=== PATIENT | male | born 1945 | race Caucasian/White ===

== ENCOUNTER 2022-02-16 16:24 | Emergency (ER) | payer MEDICARE, OTHER, SELFPAY ==
[2022-02-16 16:24] VITALS: BP 194/74; PULSE 61; RESP 15; TEMP 36.6; O2SAT 99; BMI 25.0
--- NOTE | 2022-02-16 16:40 | EX.ED.DYSGE1 ---
HPI History of Present Illness Chief Complaint: Dizziness Informant: patient Onset/Context/Timing Onset: Today Context: Sudden Onset Timing: Continuous Quality: Spinning Location: Head Worsened by: Nothing Relieved by: Nothing Narrative Narrative: Patient presents with dizziness that began earlier this morning. Patient states she woke up early this morning and felt like the room was spinning. 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 Patient describes it as a spinning sensation. Patient states nothing makes it better nothing makes it worse. Patient states that he has been waxing and waning. Patient admits to some decreased hearing but that is consistent with his M?ni?re's disease. Patient states his hearing is no different than it normally is. Patient denies any fevers or chills. Patient admits to nausea and vomiting. Patient denies any chest pain or shortness of breath. [facility] Medical History Cataract Vertigo Home Medications aspirin 81 mg capsule 81 mg PO DAILY 02/16/22 [History Last Taken Unknown] meclizine 25 mg tablet 25 mg PO BID PRN Dizziness 02/16/22 [History Last Taken Unknown] meclizine 25 mg tablet 25 mg PO Q8H PRN PRN Dizziness #20 tabs 02/16/22 [Rx Last Taken Unknown] Allergy/AdvReac Type Severity Reaction Status Date / Time No Known Allergies Allergy Verified 02/16/22 16:29 Surgical History Status post double vessel coronary artery bypass Social History Smoking Status: Never smoker ROS ROS ED Constitutional Constitutional ED: Denies chills or fever(s) Eyes Eyes: Denies blurry vision or change in vision ENT ENT ED: Denies rhinorrhea or sore throat Cardiovascular Cardiovascular: Denies chest pain or palpitations Respiratory/Chest Respiratory/Chest: Denies cough or dyspnea Gastrointestinal Gastrointestinal: Reports nausea and vomiting Genitourinary Genitourinary ED: Denies dysuria or hematuria Musculoskeletal Musculoskeletal: Denies back pain or neck pain Integumentary Denies abscess or rash Neurologic Neurologic: Denies headache(s) or weakness Allergic/Immunologic Allergic/Immunologic ED: Denies mouth swelling or urticaria EXAM Physical Exam Const Vital Signs: 02/16/22 16:24 02/16/22 16:33 02/16/22 16:39 Temperature 97.8 F Temperature Source Oral Pulse Rate 61 Respiratory Rate 15 Respiratory Effort Normal Non-Labored Respiratory Pattern Normal Blood Pressure 194/74 H Blood Pressure Mean 114 Pulse Ox 99 Oxygen Delivery Method Room Air Room Air 02/16/22 17:57 Temperature Temperature Source Pulse Rate 61 Respiratory Rate 18 Respiratory Effort Respiratory Pattern Blood Pressure 170/71 H Blood Pressure Mean 104 Pulse Ox 99 Oxygen Delivery Method Room Air Positive well nourished and well developed General Appearance ED: well developed and NAD HEENT Reports moist mucous membranes Eyes PERRL and EOMs intact bilaterally Neck supple and no JVD Resp normal respiratory effort and clear to auscultation bilaterally Cardio regular rate, regular rhythm and no murmurs GI normal to inspection, nondistended, normoactive bowel sounds and non-tender Palpation: soft Extremity normal to inspection General Extremety ED: Negative for edema or tenderness General Extremity: Negative for edema Neuro oriented x3, CN's II-XII intact bilaterally and no sensory deficits noted Sensorium / Orientation: alert Motor Exam: strength 5/5 throughout Psych mental status grossly normal Skin no rashes or lesions noted MDM MDM MDM Narrative Medical decision making narrative: Patient was given a dose of Zofran and meclizine here. CT scan of the brain was obtained. There is no acute intracranial abnormality. This was interpreted by the radiologist and reviewed by myself. CBC and basic metabolic profile were within normal limits. Patient is feeling better on reevaluation. Patient is given a prescription for meclizine. Patient was instructed to drink plenty of fluids. Patient was instructed to follow-up with his primary care physician in 5 to 7 days. Patient understood and was agreeable with the plan. All questions were answered. Lab Data Attestation: I reviewed the patient's lab results. Labs: Laboratory Results - last 24 hr 02/16/22 02/16/22 16:50 16:50 WBC 4.6 RBC 4.89 Hgb 14.5 Hct 43.2 MCV 88.3 MCH 29.7 MCHC 33.6 RDW Std Deviation 48.7 H RDW Coeff of Hussein 15.1 H Plt Count 218 MPV 11.8 Immature Gran % (Auto) 0.200 Neut % (Auto) 63.9 Lymph % (Auto) 22.0 [place] % (Auto) 10.1 H Eos % (Auto) 2.9 Baso % (Auto) 0.9 Absolute Neuts (auto) 2.9 Absolute Lymphs (auto) 1.00 Nucleated RBC % 0 Sodium 141 Potassium 3.7 Chloride 107 Carbon Dioxide 25.0 Anion Gap 9 BUN 16 Creatinine 0.91 Estim Creat Clear Calc 73.43 Est GFR (MDRD) Af Amer 104 Est GFR (MDRD) Non-Af 86 BUN/Creatinine Ratio 17.7 Glucose 115 H Calcium 10.1 Total Bilirubin 0.60 AST 20 ALT 22 Alkaline Phosphatase 49 Total Protein 7.8 Albumin 4.2 Globulin 3.6 Albumin/Globulin Ratio 1.2 Radiography Diagnostic Testing: Clinical Impression(s) from Imaging Studies Brain CT 02/16/22 17:01 IMPRESSION: There are no acute intracranial findings. 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 CTA of the neck can better evaluate Electronically Signed: Jorge Looney MD at 17:20 EDT Reading Location ID and State: [facility] / [place] , Service support , Discharge Plan Triage Chief Complaint: Dizziness ED Provider: Orlando Patel Dx/Rx/DC Orders Clinical Impression: Vertigo, M?ni?re's disease Instructions: ED Vertigo, Unspecified Prescriptions: New meclizine 25 MG tablet 25 mg PO Q8H PRN PRN (Reason: Dizziness) Qty: 20 0RF No Action meclizine [Antivert] 25 mg Tablet 25 mg PO BID PRN (Reason: Dizziness) aspirin 81 mg Capsule 81 mg PO DAILY Primary Care Provider: Care Physician,No Primary Referrals: Care Physician,No Primary [Primary Care Provider] - Doctor,Your [Non-Staff] - 5-7 Days Disposition Disposition: Home, Self Care
[2022-02-16] MEDS: Ondansetron 4 MG/2 ML Vial IV (16:51)
[2022-02-16] MEDS: Meclizine HCl 25 MG Tablet PO (16:53)
[2022-02-16 16:54] LABS: Absolute Neutrophil Count 2.9 X10^3/uL (2.0-7.7); Basophil# 0.04 X10^3/uL; Basophil% 0.9 % (0-1); Eosinophil# 0.13 X10^3/uL; Eosinophils% 2.9 % (0-5); Hematocrit 43.2 % (40-54); Hemoglobin 14.5 g/dL (13.0-16.5); Mean Corp Hgb Conc 33.6 g/dL (32-36); Mean Corpuscular Hgb 29.7 pg (27.0-32.0); Mean Corpuscular Volume 88.3 fL (80-94); Mean Platelet Vol. 11.8 fl (6.2-12.0); Monocyte# 0.46 X10^3/uL; Monocyte% 10.1 % (0-10); NRBC Flagged by Analyzer 0 % (0-5); Neutrophil # 2.91 X10^3/uL (2.7-7.7); Neutrophil % 63.9 % (47-70); Platelet Count 218 K/mm3 (150-450); RBC Distribution Width CV 15.1 % (11.6-14.6); RBC Distribution Width SD 48.7 fl (35.1-43.9); Red Blood Count 4.89 M/mm3 (4.6-6.2); White Blood Count 4.6 K/mm3 (4.4-11.0)
--- NOTE | 2022-02-16 17:01 | CT_ITS ---
STUDY: CT BRAIN WITHOUT CONTRAST REASON FOR EXAM: Male, 76 years old. Dizziness TECHNIQUE: Transaxial CT imaging of the brain was performed without administration of intravenous contrast material. Individualized dose optimization techniques were used for this CT. COMPARISON: None FINDINGS: Normal calvarium. Normal soft tissues. Normal size ventricles and extra-axial spaces for the patient''s age. There are areas of decreased attenuation within the white matter tracts of the supratentorial brain, consistent with microvascular disease changes. 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 This is noted between the cerebellar hemisphere. Normal basal ganglia and thalami. Normal brainstem. Normal cerebellum. There is no intracranial hemorrhage. There are no findings of an acute ischemic infarction. There are calcifications noted in the distal vertebral arteries. There are calcifications noted in the cavernous carotid arteries. This is consistent for atherosclerotic disease. 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 Degenerative changes of the mandibular condyles. ASPECTS 10 CT/Brain/Head without Contrast IMPRESSION: There are no acute intracranial findings. 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 CTA of the neck can better evaluate Electronically Signed: Jorge Looney MD at 17:20 EDT ,
[2022-02-16 17:12] LABS: ALB/GLOB Ratio 1.2 RATIO (0.9-2.4); AST(SGOT) 20 U/L (15-37); Alanine Aminotransfer ALT/SGPT 22 U/L (16-61); Albumin, Serum 4.2 g/dL (3.2-5.0); Alkaline Phosphatase 49 U/L (45-117); Anion Gap 9 (5-15); BUN 16 mg/dL (7-18); BUN/Creat Ratio 17.7 RATIO (10-20); Calcium,Total 10.1 mg/dL (8.5-10.1); Chloride 107 mmol/L (98-107); Creatinine, Serum 0.91 mg/dL (0.70-1.30); EST Glomerular Filtration Rate 86 mL/min (>60); Est Glom Filt Rate - Afr Amer 104 mL/min (>60); Estimated Creatinine Clearance 73.43 ml/min; Globulin 3.6 g/dL (2.2-4.2); Glucose 115 mg/dL (74-106); Potassium 3.7 mmol/L (3.5-5.1); Protein, Total 7.8 g/dL (6.4-8.2); Sodium Level 141 mmol/L (136-145)
[2022-02-16 17:57] VITALS: BP 170/71; PULSE 61; RESP 18; O2SAT 99
[2022-02-16 18:51] VITALS: BP 154/68; PULSE 71; RESP 18; O2SAT 99
--- NOTE | 2022-02-16 18:51 | ED.RN ---
500 ml NS infused
== END 2022-02-16 18:51 | disposition home or self-care (01) ==
PROVIDERS: Emergency Provider Emergency Medicine; Visit Provider Emergency Medicine
DX: H81.09 Meniere's disease, unspecified ear (principal)
CPT/HCPCS: 99285; 96374; 70450; 80053; 85025; J2405

== ENCOUNTER 2022-02-17 19:35 | Inpatient (IN) | payer MEDICARE, OTHER, SELFPAY ==
--- NOTE | 2022-02-17 00:10 | RAD_ITS ---
STUDY: X-RAY CHEST REASON FOR EXAM: Male, 76 years old. Neuro deficit, acute, stroke suspected TECHNIQUE: Single AP portable view of the chest. COMPARISON: None. FINDINGS: The lungs are clear and expanded. There is no demonstrated pleural abnormality. Sternal cerclage wires are present from a prior sternotomy. Mild cardiomegaly. Normal mediastinum and nigel. Normal visualized pulmonary arteries. Normal visualized aortic arch and descending thoracic aorta. Normal visualized thoracic spine. Normal visualized ribs, clavicles, and shoulders. There is no demonstrated abnormality of the visualized soft tissue structures of the upper abdomen. RAD/Chest 1 View IMPRESSION: Normal x-ray examination of the chest. Electronically Signed: Flaco Templeton DO at 0:54 EDT ,
[2022-02-17 19:36] VITALS: BP 146/61; PULSE 77; RESP 17; TEMP 36.6; O2SAT 97
[2022-02-17 19:38] VITALS: TEMP 36.6; BMI 23.7
--- NOTE | 2022-02-17 20:34 | EX.ED.DYSGE1 ---
[facility] <Dr. J Carlos Morelos MD - Last Filed: 02/18/22 18:18> History of Present Illness Chief Complaint: Dizziness Informant: patient Narrative Narrative: Patient presents with vertigo. He has a history of vertigo. 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 He has since recovered that. He had a trip and fall about 2 days ago. 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 His toes caught the edge of the carpet. He fell forward. He does not specifically recall hitting the head hard but suspects he did. There was no loss of consciousness. But ever since that event, he has had vertigo. He feels that is worse when he looks to the right. He feels that the motion is things spinning in front of him from his left side to his right side. It is very motion sensitive. Again, worse looking to the right. He has no numbness tingling weakness. When the vertigo kicks in he does get very nauseated and will occasionally vomit. In between these episodes he is not nauseated. If he stays still he does not have symptoms. He was seen yesterday. He had extensive evaluation and was started on meclizine. It sounds like he is likely had 3 total doses. The symptoms are a little bit better but not gone. He states he has had the Angelina maneuver done to him before with success. He requests that we try that tonight. [facility] <Dr. J Carlos Morelos MD - Last Filed: 02/18/22 18:18> [facility] Medical History Cataract Vertigo Home Medications aspirin 81 mg capsule 81 mg PO DAILY 02/16/22 [History Last Taken Unknown] meclizine 25 mg tablet 25 mg PO Q8H PRN PRN Dizziness #20 tabs 02/16/22 [Rx Last Taken Unknown] isosorbide mononitrate 30 mg tablet,extended release 24 hr 30 mg PO DAILY 02/18/22 [History Last Taken Unknown] lamotrigine 25 mg tablet 25 mg PO DAILY 02/18/22 [History Last Taken Unknown] Allergy/AdvReac Type Severity Reaction Status Date / Time Cuvfmwp-[id number]-[id number] Reductase Allergy Other Verified 02/18/22 10:00 Inhibitor Family History Other Heart disease Surgical History Status post double vessel coronary artery bypass Social History Smoking Status: Never smoker ROS <Dr. J Carlos Morelos MD - Last Filed: 02/18/22 18:18> ROS ED Constitutional Constitutional ED: Denies chills or fever(s) Eyes Eyes: Reports other Details: See history of present illness. ; Denies change in vision or diplopia ENT ENT ED: Denies ear pain Cardiovascular Cardiovascular: Denies chest pain, palpitations or racing heartbeat Respiratory/Chest Respiratory/Chest: Denies cough or dyspnea Gastrointestinal Gastrointestinal: Reports nausea and vomiting; Denies abdominal pain, constipation, diarrhea or melena Genitourinary Genitourinary ED: Denies hematuria Musculoskeletal Musculoskeletal: Denies arthralgias, back pain, myalgias or neck pain Integumentary Denies rash Neurologic Neurologic: Reports other Details: See history of present illness ; Denies headache(s), paresthesias or weakness Endocrine Endocrinology: Denies polydipsia or polyuria Hematologic/Lymphatic Hematologic/Lymphatic: Denies easy bleeding or easy bruising Allergic/Immunologic Allergic/Immunologic ED: Denies urticaria EXAM <Dr. J Carlos Morelos MD - Last Filed: 02/18/22 18:18> Physical Exam Const Vital Signs: 02/17/22 19:36 02/17/22 19:38 02/17/22 20:04 Temperature 97.9 F 97.9 F Temperature Source Temporal Temporal Pulse Rate 77 Respiratory Rate 17 Respiratory Effort Normal Non-Labored Respiratory Depth Respiratory Pattern Normal Blood Pressure 146/61 H Blood Pressure Mean 89 Blood Pressure Source Blood Pressure Position Blood Pressure Location Pulse Ox 97 Oxygen Delivery Method Room Air 02/17/22 21:35 02/17/22 23:13 02/17/22 23:20 Temperature Temperature Source Pulse Rate 74 57 L Respiratory Rate 14 17 Respiratory Effort Respiratory Depth Respiratory Pattern Blood Pressure 157/68 H Blood Pressure Mean 97 Blood Pressure Source Blood Pressure Position Blood Pressure Location Pulse Ox 96 98 Oxygen Delivery Method Room Air Room Air Room Air 02/18/22 01:04 02/18/22 01:40 02/18/22 02:25 Temperature 97.8 F 97.7 F L Temperature Source Temporal Oral Pulse Rate 55 L 69 Respiratory Rate 17 16 Respiratory Effort Normal Non-Labored Respiratory Depth Normal Respiratory Pattern Normal Blood Pressure 155/62 H 174/71 H Blood Pressure Mean 93 105 Blood Pressure Source Monitor Blood Pressure Position Semi-Fowlers Blood Pressure Location Left Arm Pulse Ox 95 100 Oxygen Delivery Method Room Air Room Air Room Air 02/18/22 01:45 02/18/22 03:00 02/18/22 05:30 Temperature 97.6 F L Temperature Source Oral Pulse Rate 63 45 L 66 Respiratory Rate 16 Respiratory Effort Respiratory Depth Respiratory Pattern Blood Pressure 127/71 H Blood Pressure Mean 89 Blood Pressure Source Monitor Blood Pressure Position Semi-Fowlers Blood Pressure Location Right Arm Pulse Ox 99 Oxygen Delivery Method Room Air 02/18/22 06:58 02/18/22 07:49 02/18/22 09:22 Temperature 98.5 F Temperature Source Oral Pulse Rate 41 L 56 L Respiratory Rate 16 Respiratory Effort Normal Non-Labored Respiratory Depth Normal Respiratory Pattern Normal Blood Pressure 125/56 H Blood Pressure Mean 79 Blood Pressure Source Monitor Blood Pressure Position Semi-Fowlers Blood Pressure Location Right Arm Pulse Ox 97 Oxygen Delivery Method Room Air Room Air 02/18/22 07:20 02/18/22 13:22 02/18/22 13:32 Temperature 98.3 F Temperature Source Temporal Pulse Rate 67 Respiratory Rate 16 Respiratory Effort Respiratory Depth Respiratory Pattern Blood Pressure 151/50 H Blood Pressure Mean 83 Blood Pressure Source Monitor Blood Pressure Position Semi-Fowlers Blood Pressure Location Left Arm Pulse Ox 97 99 Oxygen Delivery Method Room Air Room Air Room Air 02/18/22 11:00 Temperature Temperature Source Pulse Rate 54 L Respiratory Rate Respiratory Effort Respiratory Depth Respiratory Pattern Blood Pressure Blood Pressure Mean Blood Pressure Source Blood Pressure Position Blood Pressure Location Pulse Ox Oxygen Delivery Method Positive well nourished and well developed General Appearance ED: well developed and NAD; Negative for cyanotic or diaphoretic HEENT Reports moist mucous membranes; Denies dry mucous membranes Mouth ED: No dry mucous membranes Mouth: No dry mucous membranes Eyes General Eye ED: Negative for scleral icterus Neck no lymphadenopathy and no JVD Chest Wall inspection of chest normal Resp normal respiratory effort and clear to auscultation bilaterally Cardio regular rate, regular rhythm and no murmurs GI normal to inspection, nondistended, normoactive bowel sounds, non-tender and non-distended Palpation: soft Back/Spine no CVA tenderness Extremity normal to inspection Neuro oriented x3, CN's II-XII intact bilaterally and no sensory deficits noted Neuro Narrative: Patient has an NIH of 0. When I have him turn to the right he gets definite vertigo he gets horizontal nystagmus, he gets some belching and almost vomits. The symptoms were not as prominent looking to the left but they did occur slightly. They did fatigue somewhat. Sensorium / Orientation: alert Psych mental status grossly normal Skin no rashes or lesions noted <Dr. Uvaldo Whiting, DO - Last Filed: 02/18/22 01:00> Physical Exam Const Vital Signs: 02/17/22 19:36 02/17/22 19:38 02/17/22 20:04 Temperature 97.9 F 97.9 F Temperature Source Temporal Temporal Pulse Rate 77 Respiratory Rate 17 Respiratory Effort Normal Non-Labored Respiratory Depth Respiratory Pattern Normal Blood Pressure 146/61 H Blood Pressure Mean 89 Blood Pressure Source Blood Pressure Position Blood Pressure Location Pulse Ox 97 Oxygen Delivery Method Room Air 02/17/22 21:35 02/17/22 23:13 02/17/22 23:20 Temperature Temperature Source Pulse Rate 74 57 L Respiratory Rate 14 17 Respiratory Effort Respiratory Depth Respiratory Pattern Blood Pressure 157/68 H Blood Pressure Mean 97 Blood Pressure Source Blood Pressure Position Blood Pressure Location Pulse Ox 96 98 Oxygen Delivery Method Room Air Room Air Room Air 02/18/22 01:04 02/18/22 01:40 02/18/22 02:25 Temperature 97.8 F 97.7 F L Temperature Source Temporal Oral Pulse Rate 55 L 69 Respiratory Rate 17 16 Respiratory Effort Normal Non-Labored Respiratory Depth Normal Respiratory Pattern Normal Blood Pressure 155/62 H 174/71 H Blood Pressure Mean 93 105 Blood Pressure Source Monitor Blood Pressure Position Semi-Fowlers Blood Pressure Location Left Arm Pulse Ox 95 100 Oxygen Delivery Method Room Air Room Air Room Air 02/18/22 01:45 02/18/22 03:00 02/18/22 05:30 Temperature 97.6 F L Temperature Source Oral Pulse Rate 63 45 L 66 Respiratory Rate 16 Respiratory Effort Respiratory Depth Respiratory Pattern Blood Pressure 127/71 H Blood Pressure Mean 89 Blood Pressure Source Monitor Blood Pressure Position Semi-Fowlers Blood Pressure Location Right Arm Pulse Ox 99 Oxygen Delivery Method Room Air 02/18/22 06:58 02/18/22 07:49 02/18/22 09:22 Temperature 98.5 F Temperature Source Oral Pulse Rate 41 L 56 L Respiratory Rate 16 Respiratory Effort Normal Non-Labored Respiratory Depth Normal Respiratory Pattern Normal Blood Pressure 125/56 H Blood Pressure Mean 79 Blood Pressure Source Monitor Blood Pressure Position Semi-Fowlers Blood Pressure Location Right Arm Pulse Ox 97 Oxygen Delivery Method Room Air Room Air 02/18/22 07:20 02/18/22 13:22 02/18/22 13:32 Temperature 98.3 F Temperature Source Temporal Pulse Rate 67 Respiratory Rate 16 Respiratory Effort Respiratory Depth Respiratory Pattern Blood Pressure 151/50 H Blood Pressure Mean 83 Blood Pressure Source Monitor Blood Pressure Position Semi-Fowlers Blood Pressure Location Left Arm Pulse Ox 97 99 Oxygen Delivery Method Room Air Room Air Room Air 02/18/22 11:00 Temperature Temperature Source Pulse Rate 54 L Respiratory Rate Respiratory Effort Respiratory Depth Respiratory Pattern Blood Pressure Blood Pressure Mean Blood Pressure Source Blood Pressure Position Blood Pressure Location Pulse Ox Oxygen Delivery Method [facility] <Dr. J Carlos Morelos MD - Last Filed: 02/18/22 18:18> [facility] Narrative Medical decision making narrative: We initially did Angelina maneuver starting with head tilted to the right. He did get some vertigo at each stage. He got vertigo when we sat him up. He feels the symptoms improved a little bit but he still has notable vertigo with turning. We let him rest, and then we did the same maneuver going to the left. He initially did not have as many symptoms but when we sat him up he got a fair amount of symptoms. These did stop within about 20 seconds. As we did induce some nausea with this, we will give him some Zofran. We will also try Valium and reattempt the procedure. I also reviewed work-up from yesterday. Blood work was overall normal. CT of the head showed no acute process but did show vertebral artery narrowing. We tried Angelina maneuver to the right and left without any significant benefit. At this point he was nauseated afterwards. We did give him Zofran. We then gave him Valium. We repeated this. He felt a little better sitting in bed. He states if he sits still he does not have any problems. He tried turning right in the left and he did feel better. He states the nausea was gone. However, we tried to get him up and he was very vertiginous and felt like he was going to vomit again. We sat him down and the symptoms got better. However, at this time I cannot get him better with multiple meds. He is already on meclizine at home. He is 76. CT yesterday showed some vertebral narrowing. At this point we will pursue further work-up. His symptoms do not sound like acute stroke but it certainly very difficult to differentiate posterior circulation from benign vertigo at times. Since he is not responding to therapy we will pursue more comprehensive work-up. We will repeat much of the work-up yesterday and add a CTA also. I will try to get SOC neurology consult. Unless the patient improves markedly, he will likely need admission for management. Lab Data Labs: Laboratory Results - last 24 hr 02/17/22 02/17/22 02/17/22 23:00 23:00 23:00 WBC 4.6 RBC 4.59 L Hgb 13.4 Hct 41.0 MCV 89.3 MCH 29.2 MCHC 32.7 RDW Std Deviation 49.4 H RDW Coeff of Hussein 15.0 H Plt Count 209 MPV 11.4 Immature Gran % (Auto) 0.200 Neut % (Auto) 71.6 H Lymph % (Auto) 18.8 L [place] % (Auto) 7.9 Eos % (Auto) 1.3 Baso % (Auto) 0.2 Absolute Neuts (auto) 3.3 Absolute Lymphs (auto) 0.86 Nucleated RBC % 0 PT 14.2 INR 1.1 APTT 28.0 Sodium 140 Potassium 3.8 Chloride 104 Carbon Dioxide 28.0 Anion Gap 8 BUN 19 H Creatinine 1.10 Estim Creat Clear Calc 60.75 Est GFR (MDRD) Af Amer 83 Est GFR (MDRD) Non-Af 69 BUN/Creatinine Ratio 17.3 Glucose 137 H Hemoglobin A1c Calcium 9.3 Troponin I High Sens 95 H Triglycerides Cholesterol LDL Cholesterol VLDL Cholesterol HDL Cholesterol 02/18/22 02/18/22 02/18/22 02:08 04:41 04:41 WBC 4.7 RBC 4.30 L Hgb 12.9 L Hct 38.5 L MCV 89.5 MCH 30.0 MCHC 33.5 RDW Std Deviation 50.4 H RDW Coeff of Hussein 15.3 H Plt Count 190 MPV 11.3 Immature Gran % (Auto) 0.400 Neut % (Auto) 59.3 Lymph % (Auto) 27.7 [place] % (Auto) 10.1 H Eos % (Auto) 1.9 Baso % (Auto) 0.6 Absolute Neuts (auto) 2.8 Absolute Lymphs (auto) 1.31 Nucleated RBC % 0 PT INR APTT Sodium 140 Potassium 3.5 Chloride 106 Carbon Dioxide 27.0 Anion Gap 7 BUN 18 Creatinine 1.02 Estim Creat Clear Calc 65.51 Est GFR (MDRD) Af Amer 91 Est GFR (MDRD) Non-Af 75 BUN/Creatinine Ratio 17.6 Glucose 134 H Hemoglobin A1c Calcium 8.7 Troponin I High Sens 94 H 91 H Triglycerides 189 Cholesterol 212 H LDL Cholesterol 140 H VLDL Cholesterol 38 HDL Cholesterol 34 L 02/18/22 04:41 WBC RBC Hgb Hct MCV MCH MCHC RDW Std Deviation RDW Coeff of Hussein Plt Count MPV Immature Gran % (Auto) Neut % (Auto) Lymph % (Auto) [place] % (Auto) Eos % (Auto) Baso % (Auto) Absolute Neuts (auto) Absolute Lymphs (auto) Nucleated RBC % PT INR APTT Sodium Potassium Chloride Carbon Dioxide Anion Gap BUN Creatinine Estim Creat Clear Calc Est GFR (MDRD) Af Amer Est GFR (MDRD) Non-Af BUN/Creatinine Ratio Glucose Hemoglobin A1c 5.7 H Calcium Troponin I High Sens Triglycerides Cholesterol LDL Cholesterol VLDL Cholesterol HDL Cholesterol Radiography Diagnostic Testing: Clinical Impression(s) from Imaging Studies Chest X-Ray 02/17/22 00:10 IMPRESSION: Normal x-ray examination of the chest. Electronically Signed: Flaco Templeton DO at 0:54 EDT , Brain CT 02/18/22 00:00 IMPRESSION: No acute intracranial pathology. No change from 2 days prior N.B. : The above Results were Read Back by Flaco Templeton DO to Uvaldo Whiting MD, and understanding confirmed on 02/18/2022 00:15:03 (ET). Electronically Signed: Flaco Templeton DO at 0:16 EDT , ADDENDUM: 02/18/22 0023 IMPRESSION: No acute intracranial pathology. No change from 2 days prior N.B. : The above Results were Read Back by Flaco Templeton DO to Uvaldo Whiting MD, and understanding confirmed on 02/18/2022 00:15:03 (ET). Electronically Signed: Flaco Templeton DO at 0:16 EDT , Head/Neck CTA 02/18/22 00:00 IMPRESSION: No evidence of occlusion, dissection or aneurysm. Severe atherosclerotic disease in the right carotid bulb with a high-grade stenosis. Moderate atherosclerotic disease in the left carotid bulb. N.B. : The above Results were Read Back by Flaco Templeton DO to Uvaldo Whiting MD, and understanding confirmed on 02/18/2022 00:37:50 (ET). Electronically Signed: Flaco Templeton DO at 0:39 EDT Reading Location ID and State: [address] [place] [address] Tel , Service support , ADDENDUM: 02/18/22 0045 IMPRESSION: No evidence of occlusion, dissection or aneurysm. Severe atherosclerotic disease in the right carotid bulb with a high-grade stenosis. Moderate atherosclerotic disease in the left carotid bulb. N.B. : The above Results were Read Back by Flaco Templeton DO to Uvaldo Whiting MD, and understanding confirmed on 02/18/2022 00:37:50 (ET). Electronically Signed: Flaco Templeton DO at 0:39 EDT , Echocardiogram 02/18/22 01:41 Interpretation Summary The estimated ejection fraction is 55-60 %. Calcified AV possible bicuspid AV MAGALY 1.4 cm2/ mild A0 Max PG 16.8 Intact IAS No previous study to compare Ordering Physician: Conner Balbuena Performed By: Abelardo Martinez RCS Initial EKG: Comments: EKG done as part of work-up for vertigo and read by me shows sinus rhythm with mild bradycardic rate of 55. Occasional PAC. No acute ST elevation or depression. There is a slight first-degree block. NE interval is long at 204 ms. QRS duration and QTc are normal. <Dr. Uvaldo Whiting, DO - Last Filed: 02/18/22 01:00> [facility] Lab Data Attestation: I reviewed the patient's lab results. Labs: Laboratory Results - last 24 hr 02/17/22 02/17/22 02/17/22 23:00 23:00 23:00 WBC 4.6 RBC 4.59 L Hgb 13.4 Hct 41.0 MCV 89.3 MCH 29.2 MCHC 32.7 RDW Std Deviation 49.4 H RDW Coeff of Hussein 15.0 H Plt Count 209 MPV 11.4 Immature Gran % (Auto) 0.200 Neut % (Auto) 71.6 H Lymph % (Auto) 18.8 L [place] % (Auto) 7.9 Eos % (Auto) 1.3 Baso % (Auto) 0.2 Absolute Neuts (auto) 3.3 Absolute Lymphs (auto) 0.86 Nucleated RBC % 0 PT 14.2 INR 1.1 APTT 28.0 Sodium 140 Potassium 3.8 Chloride 104 Carbon Dioxide 28.0 Anion Gap 8 BUN 19 H Creatinine 1.10 Estim Creat Clear Calc 60.75 Est GFR (MDRD) Af Amer 83 Est GFR (MDRD) Non-Af 69 BUN/Creatinine Ratio 17.3 Glucose 137 H Hemoglobin A1c Calcium 9.3 Troponin I High Sens 95 H Triglycerides Cholesterol LDL Cholesterol VLDL Cholesterol HDL Cholesterol 02/18/22 02/18/22 02/18/22 02:08 04:41 04:41 WBC 4.7 RBC 4.30 L Hgb 12.9 L Hct 38.5 L MCV 89.5 MCH 30.0 MCHC 33.5 RDW Std Deviation 50.4 H RDW Coeff of Hussein 15.3 H Plt Count 190 MPV 11.3 Immature Gran % (Auto) 0.400 Neut % (Auto) 59.3 Lymph % (Auto) 27.7 [place] % (Auto) 10.1 H Eos % (Auto) 1.9 Baso % (Auto) 0.6 Absolute Neuts (auto) 2.8 Absolute Lymphs (auto) 1.31 Nucleated RBC % 0 PT INR APTT Sodium 140 Potassium 3.5 Chloride 106 Carbon Dioxide 27.0 Anion Gap 7 BUN 18 Creatinine 1.02 Estim Creat Clear Calc 65.51 Est GFR (MDRD) Af Amer 91 Est GFR (MDRD) Non-Af 75 BUN/Creatinine Ratio 17.6 Glucose 134 H Hemoglobin A1c Calcium 8.7 Troponin I High Sens 94 H 91 H Triglycerides 189 Cholesterol 212 H LDL Cholesterol 140 H VLDL Cholesterol 38 HDL Cholesterol 34 L 02/18/22 04:41 WBC RBC Hgb Hct MCV MCH MCHC RDW Std Deviation RDW Coeff of Hussein Plt Count MPV Immature Gran % (Auto) Neut % (Auto) Lymph % (Auto) [place] % (Auto) Eos % (Auto) Baso % (Auto) Absolute Neuts (auto) Absolute Lymphs (auto) Nucleated RBC % PT INR APTT Sodium Potassium Chloride Carbon Dioxide Anion Gap BUN Creatinine Estim Creat Clear Calc Est GFR (MDRD) Af Amer Est GFR (MDRD) Non-Af BUN/Creatinine Ratio Glucose Hemoglobin A1c 5.7 H Calcium Troponin I High Sens Triglycerides Cholesterol LDL Cholesterol VLDL Cholesterol HDL Cholesterol Radiography Diagnostic Testing: Clinical Impression(s) from Imaging Studies Chest X-Ray 02/17/22 00:10 IMPRESSION: Normal x-ray examination of the chest. Electronically Signed: Flaco Templeton DO at 0:54 EDT , Brain CT 02/18/22 00:00 IMPRESSION: No acute intracranial pathology. No change from 2 days prior N.B. : The above Results were Read Back by Flaco Templeton DO to Uvaldo Whiting MD, and understanding confirmed on 02/18/2022 00:15:03 (ET). Electronically Signed: Flaco Templeton DO at 0:16 EDT Reading Location ID and State: [facility] / [place] Tel , Service support , ADDENDUM: 02/18/22 0023 IMPRESSION: No acute intracranial pathology. No change from 2 days prior N.B. : The above Results were Read Back by Flaco Templeton DO to Uvaldo Whiting MD, and understanding confirmed on 02/18/2022 00:15:03 (ET). Electronically Signed: Flaco Templeton DO at 0:16 EDT Reading Location ID and State: [facility] / [place] Tel , Service support , Head/Neck CTA 02/18/22 00:00 IMPRESSION: No evidence of occlusion, dissection or aneurysm. Severe atherosclerotic disease in the right carotid bulb with a high-grade stenosis. Moderate atherosclerotic disease in the left carotid bulb. N.B. : The above Results were Read Back by Flaco Templeton DO to Uvaldo Whiting MD, and understanding confirmed on 02/18/2022 00:37:50 (ET). Electronically Signed: Flaco Templeton DO at 0:39 EDT Reading Location ID and State: [facility] / [place] Tel , Service support , ADDENDUM: 02/18/22 0045 IMPRESSION: No evidence of occlusion, dissection or aneurysm. Severe atherosclerotic disease in the right carotid bulb with a high-grade stenosis. Moderate atherosclerotic disease in the left carotid bulb. N.B. : The above Results were Read Back by Flaco Templeton DO to Uvaldo Whiting MD, and understanding confirmed on 02/18/2022 00:37:50 (ET). Electronically Signed: Flaco Templeton DO at 0:39 EDT Reading Location ID and State: [facility] / [place] Tel , Service support , Echocardiogram 02/18/22 01:41 Interpretation Summary The estimated ejection fraction is 55-60 %. Calcified AV possible bicuspid AV MAGALY 1.4 cm2/ mild A0 Max PG 16.8 Intact IAS No previous study to compare Ordering Physician: Conner Balbuena Performed By: Abelardo Martinez RCS 1 view chest x-ray as interpreted by the emergency medicine physician reveals no acute infiltrate pneumothorax or pleural effusion Treatment and Re-Evaluation Narrative: Patient was signed out to me while awaiting evaluation by telemetry neurologist and his CT/CTA. Noncontrast CAT scan revealed no acute findings and CTA revealed atherosclerotic changes without acute occlusion. Evaluation by telemetry neurology recommends a TIA work-up for his persistent dizziness/vertigo. At this time they recommend continuing aspirin but do not feel need for any further anticoagulation. They also recommend admission because of his persistent symptoms and therefore medicine was contacted and they will accept the patient at this time in order to further work-up his dizziness/vertigo symptoms as they have not resolved with Valium and the Angelina maneuver Discharge Plan Dx/Rx/DC Orders Clinical Impression: Vertigo, M?ni?re's disease, Atherosclerosis of both carotid arteries Disposition Disposition: Acute Care Hospital [facility] Discharge Date/Time: 02/18/22 01:39
[2022-02-17] MEDS: Ondansetron ODT 4 MG Tablet PO (20:47)
[2022-02-17] MEDS: diazePAM 5 MG Tablet 2 MG PO (20:48)
[2022-02-17 21:35] VITALS: PULSE 74; RESP 14; O2SAT 96
[2022-02-17] MEDS: diazePAM 5 MG Tablet 2.5 MG PO (21:36)
--- NOTE | 2022-02-17 22:47 | EKG12_ITS ---
Test Reason : DYSRHYTHMIA Blood Pressure : / mmHG Vent. Rate : 055 BPM Atrial Rate : 055 BPM P-R Int : 204 ms QRS Dur : 108 ms QT Int : 478 ms P-R-T Axes : 066 025 036 degrees QTc Int : 457 ms Sinus bradycardia with Premature supraventricular complexes Otherwise normal ECG Confirmed by MORIAH LLAMAS, KENNEDY ([id number]), editor news CHRISSIE RIVERA ([id number]) on 02/20/2022 11:02:24 AM Referred By: PL Confirmed By:KENNEDY MAJOR MD
--- NOTE | 2022-02-17 22:51 | TELEMED_ITS ---
SOC Telemed has confirmed receipt of a request for visit. This document confirms receipt of the order initiating the consult. To find the results of the consultation, please view the patient's reports for the scanned Telemed Consult.
[2022-02-17 23:05] LABS: Absolute Lymphocyte Count 0.86 X10^3/uL (0.83-4.51); Absolute Neutrophil Count 3.3 X10^3/uL (2.0-7.7); Basophil# 0.01 X10^3/uL; Basophil% 0.2 % (0-1); Eosinophil# 0.06 X10^3/uL; Eosinophils% 1.3 % (0-5); Hemoglobin 13.4 g/dL (13.0-16.5); Lymphocyte # 0.86 X10^3/ul (0.83-4.51); Lymphocyte % 18.8 % (19-41); Mean Corp Hgb Conc 32.7 g/dL (32-36); Mean Corpuscular Hgb 29.2 pg (27.0-32.0); Mean Corpuscular Volume 89.3 fL (80-94); Mean Platelet Vol. 11.4 fl (6.2-12.0); Monocyte# 0.36 X10^3/uL; Monocyte% 7.9 % (0-10); NRBC Flagged by Analyzer 0 % (0-5); Neutrophil # 3.27 X10^3/uL (2.7-7.7); Neutrophil % 71.6 % (47-70); Platelet Count 209 K/mm3 (150-450); RBC Distribution Width SD 49.4 fl (35.1-43.9); Red Blood Count 4.59 M/mm3 (4.6-6.2); White Blood Count 4.6 K/mm3 (4.4-11.0)
[2022-02-17 23:20] VITALS: BP 157/68; PULSE 57; RESP 17; O2SAT 98
[2022-02-17 23:20] LABS: International Normalized Ratio 1.1; Prothrombin Time (Protime)PT. 14.2 SECONDS (11.7-14.9)
--- NOTE | 2022-02-17 23:21 | ED.RN ---
Son, Chidi, went home and can be reached at [phone] with room number. He is aware SOC will likely take all night and usually results in admit for MRI and usually to first floor pcu and aware hours start at 9am. We can call with the update and room number when available. SOC monitor in room.
[2022-02-17 23:26] LABS: Anion Gap 8 (5-15); BUN 19 mg/dL (7-18); BUN/Creat Ratio 17.3 RATIO (10-20); Calcium,Total 9.3 mg/dL (8.5-10.1); Chloride 104 mmol/L (98-107); EST Glomerular Filtration Rate 69 mL/min (>60); Est Glom Filt Rate - Afr Amer 83 mL/min (>60); Estimated Creatinine Clearance 60.75 ml/min; Glucose 137 mg/dL (74-106); Potassium 3.8 mmol/L (3.5-5.1); Sodium Level 140 mmol/L (136-145); Troponin-I HS 95 pg/mL (3.0-78.0)
[2022-02-18] VITALS (14 sets, daily range): BP systolic 123–174; BP diastolic 50–75; PULSE 41–69; RESP 16–18; TEMP 36.4–37.1; O2SAT 95–100; BMI 23.7
--- NOTE | 2022-02-18 | CT_ITS ---
STUDY: CT HEAD STROKE PROTOCOL W/O CONTRAST INJECTION REASON FOR EXAM: Male, 76 years old. Neuro deficit, acute, stroke suspected RADIATION DOSAGE (If Supplied By Facility): CTDIvol = ( ) mGy, DLP = ( ) mGycm TECHNIQUE: Transaxial CT imaging of the brain was performed without administration of intravenous contrast material. Individualized dose optimization techniques were used for this CT. COMPARISON: 02/16/2022 FINDINGS: Normal soft tissue structures. Normal calvarium. There is mild cerebral atrophy with widening of the extra-axial spaces and ventricular dilatation. There are areas of decreased attenuation within the white matter tracts of the supratentorial brain, consistent with microvascular disease changes. Normal basal ganglia and thalami. Normal brainstem. Normal cerebellum. Stable [place]ington cisterna magna. There is no intracranial hemorrhage. There are no findings of an acute ischemic infarction. Normal visualized paranasal sinuses. CT/STROKE Brain/Head without Cont IMPRESSION: No acute intracranial pathology. No change from 2 days prior N.B. : The above Results were Read Back by Flaco Templeton DO to Uavldo Whiting MD, and understanding confirmed on 02/18/2022 00:15:03 (ET). Electronically Signed: Flaco Templeton DO at 0:16 EDT ,
--- NOTE | 2022-02-18 | CT_ITS ---
STUDY: CTA HEAD AND NECK WITH CONTRAST REASON FOR EXAM: Male, 76 years old. Neuro deficit, acute, stroke suspected RADIATION DOSAGE (If Supplied By Facility): CTDIvol = ( 21.74 ) mGy, DLP = ( 790.50 ) mGycm TECHNIQUE: CT angiography was performed with a multi-detector CT scanner. Data acquisition was obtained from the skull base through the vertex following intravenous administration of IV 100mL Isovue-370. MIP images were reconstructed from the axial data set. Post-processing of the angiographic images was performed, with multiplanar reformation and 3D reconstruction. Individualized dose optimization techniques were used for this CT. COMPARISON: No relevant priors. FINDINGS: Normal bilateral petrous carotid arteries. There is calcified plaque formation of the right cavernous carotid artery, with a mild stenosis (less than 50%). There is calcified plaque formation of the left cavernous carotid artery, with a mild stenosis (less than 50%). Normal right A1 segments of the anterior cerebral artery. Normal left A1 segments of the anterior cerebral artery. Normal intact anterior communicating artery (ACOM). Normal bilateral A2 segments of the anterior cerebral arteries. Normal right M1 and M2 segments of the middle cerebral arteries, with a normal M1 bifurcation. Normal left M1 and M2 segments of the middle cerebral arteries, with a normal M1 bifurcation. Normal right posterior communicating artery (PCOM). Normal left posterior communicating artery (PCOM). Normal bilateral vertebral arteries. Normal basilar artery with a normal basilar bifurcation. The visualized bilateral superior cerebellar (SCA) arteries are normal. Normal bilateral P1, P2 and visualized P3 segments of the posterior cerebral arteries. There is no demonstrated aneurysm of the [place]. There is no demonstrated abnormality of the visualized brain. AORTIC ARCH: Normal visualized aortic arch. Normal origins of the brachiocephalic, left common carotid, and left subclavian arteries. RIGHT CAROTID ARTERIES: Normal right common carotid artery (CCA). There is extensive atherosclerotic plaque formation with severe narrowing of the right carotid bulb with a hemodynamically significant stenosis. Normal origin of the right internal carotid (ICA) artery without a hemodynamically significant stenosis. Normal visualized cervical portion of the right internal carotid artery. Normal origin of the right external carotid artery (ECA). LEFT CAROTID ARTERIES: Normal left common carotid artery (CCA). There is moderate atherosclerotic plaque formation with moderate narrowing of the carotid bulb. Normal origin of the left internal carotid (ICA) artery without a hemodynamically significant stenosis. Normal visualized cervical portion of the left internal carotid artery. Normal origin of the left external carotid artery (ECA). VERTEBRAL ARTERIES: Normal bilateral vertebral arteries. CT/STROKE CTA Head AND Neck W/Con IMPRESSION: No evidence of occlusion, dissection or aneurysm. Severe atherosclerotic disease in the right carotid bulb with a high-grade stenosis. Moderate atherosclerotic disease in the left carotid bulb. N.B. : The above Results were Read Back by Flaco Templeton DO to Uvaldo Whiting MD, and understanding confirmed on 02/18/2022 00:37:50 (ET). Electronically Signed: Flaco Templeton DO at 0:39 EDT ,
--- NOTE | 2022-02-18 00:29 | PCM.HP.STD ---
HPI - General General Date of Admission: 02/18/22 Date of Service: 02/18/22 Chief Complaint: vertigo HPI Narrative MARILEE LAMAR, is a 76 M with a significant history of pulmonary disease; CAD status post two-vessel CABG and on home aspirin who presents to the emergency department with Vertigo and a started 2 days before his presentation. Of note patient was also treated and discharged a day before his presentation for Vertigo. He was discharged home on meclizine. And indeed he reports history of vertigo for which he takes as needed meclizine. His vertigo is persistent. He denies any aggravating or ameliorating factors. Reports nausea and vomiting. In regard to his M?ni?re disease he reports history of decreased hearing in his right ear that has improved even in the past 1 and half to 2 weeks. On presentation attempts was made to send patient home of the patient was too vertiginous to stand up. [facility] Medical History Cataract Vertigo Home Medications aspirin 81 mg capsule 81 mg PO DAILY 02/16/22 [History Last Taken Unknown] meclizine 25 mg tablet 25 mg PO BID PRN Dizziness 02/16/22 [History Last Taken Unknown] meclizine 25 mg tablet 25 mg PO Q8H PRN PRN Dizziness #20 tabs 02/16/22 [Rx Last Taken Unknown] Allergy/AdvReac Type Severity Reaction Status Date / Time No Known Allergies Allergy Verified 02/17/22 19:37 Family History Other Heart disease Surgical History Status post double vessel coronary artery bypass Social History Smoking Status: Never smoker ROS ROS Narrative Pertinent positives and pertinent negatives as noted in HPI. All other systems were reviewed and are negative Vital Signs Vital Signs Vital Signs: 02/17/22 19:36 02/17/22 19:38 02/17/22 20:04 Temperature 97.9 F 97.9 F Temperature Source Temporal Temporal Pulse Rate 77 Respiratory Rate 17 Respiratory Effort Normal Non-Labored Respiratory Pattern Normal Blood Pressure 146/61 H Blood Pressure Mean 89 Pulse Ox 97 Oxygen Delivery Method Room Air 02/17/22 21:35 02/17/22 23:13 02/17/22 23:20 Temperature Temperature Source Pulse Rate 74 57 L Respiratory Rate 14 17 Respiratory Effort Respiratory Pattern Blood Pressure 157/68 H Blood Pressure Mean 97 Pulse Ox 96 98 Oxygen Delivery Method Room Air Room Air Room Air Weight Weight: 79.379 kg Body Mass Index (BMI) 23.7 Physical Exam Narrative Physical exam: General: Well-nourished, well-developed. Head: Normocephalic, atraumatic, no tenderness Eyes: Vision is grossly intact. EOMI ENT, no trauma, moist mucous membranes, no rhinorrhea Neck: Nontender, full range of motion, no spinal tenderness, deformities, step-off CVS: Regular rate and rhythm. S1-S2 present. No murmur, gallop or rub. Respiratory : Bibasilar Rales, chest wall nontender, no wheezing Abdomen: Soft, nontender, nondistended, normal bowel sounds, no masses : Deferred Back: Nontender, no CVA tenderness, no midline spinal tenderness, deformities, step-offs Extremities: Nontender full range of motion, no trauma Skin: Normal color, no trauma, abrasions Neuro: Alert, oriented, cranial nerves II through XII grossly intact. Psychiatry: Normal mood. Normal affect. Not depressed. Not anxious. Results Lab / Micro Data Result Diagrams: 02/17/22 23:00 02/17/22 23:00 Labs: Laboratory Results - last 24 hr 02/17/22 23:00: WBC 4.6, RBC 4.59 L, Hgb 13.4, Hct 41.0, MCV 89.3, MCH 29.2, MCHC 32.7, RDW Std Deviation 49.4 H, RDW Coeff of Hussein 15.0 H, Plt Count 209, MPV 11.4, Immature Gran % (Auto) 0.200, Neut % (Auto) 71.6 H, Lymph % (Auto) 18.8 L, [place] % (Auto) 7.9, Eos % (Auto) 1.3, Baso % (Auto) 0.2, Absolute Neuts (auto) 3.3, Absolute Lymphs (auto) 0.86, Nucleated RBC % 0 02/17/22 23:00: PT 14.2, INR 1.1, APTT 28.0 02/17/22 23:00: Sodium 140, Potassium 3.8, Chloride 104, Carbon Dioxide 28.0, Anion Gap 8, BUN 19 H, Creatinine 1.10, Estim Creat Clear Calc 60.75, Est GFR (MDRD) Af Amer 83, Est GFR (MDRD) Non-Af 69, BUN/Creatinine Ratio 17.3, Glucose 137 H, Calcium 9.3, Troponin I High Sens 95 H Radiology Impression Brain CT 02/18/22 00:00 IMPRESSION: No acute intracranial pathology. No change from 2 days prior N.B. : The above Results were Read Back by Flaco Templeton DO to Uvaldo Whiting MD, and understanding confirmed on 02/18/2022 00:15:03 (ET). Electronically Signed: Flaco Templeton DO at 0:16 EDT Reading Location ID and State: [facility] / [place] Tel , Service support , ADDENDUM: 02/18/22 0023 IMPRESSION: No acute intracranial pathology. No change from 2 days prior N.B. : The above Results were Read Back by Flaco Templeton DO to Uvaldo Whiting MD, and understanding confirmed on 02/18/2022 00:15:03 (ET). Electronically Signed: Flaco Templeton DO at 0:16 EDT , Assessment & Plan Assessment/Plan (1) Vertigo: PLAN: Plan Intractable Vertigo Order MRI Schedule meclizine 3 times daily As needed Valium ordered. Physical therapy consult Head CT with no acute pathology. Head CT was visualized and independent interpreted and I agree with radiologist interpretation. CT neck with severe atherosclerotic disease in the right carotid bulb and high-grade stenosis. Moderate atherosclerotic disease in the left carotid bulb. Lipid profile and A1c ordered. Daily aspirin. Patient reports allergy to statin. MRI of head ordered. Echocardiogram ordered. Per teleneurology's recommendation Plavix 300 mg p.o. x1. Per teleneurology recommendation if MRI is positive order Plavix 75 mg daily. Permissive hypertension. Control blood pressure with labetalol for systolic blood pressure of more than 220 or diastolic blood pressure of more than 120. Elevated troponin High sensitivity troponin of 95. Trend. Denies chest pain. Likely type II [place] from demand ischemia. DVT prophylaxis: SCDs ordered. Charges/Coding Visit Charges OBSV E&M: 61818 Initial observation care L3
[2022-02-18] MEDS: diazePAM 5 MG Tablet PO (01:33)
--- NOTE | 2022-02-18 01:41 | ECHOD_ITS ---
Reason For Study: TIA/CVA Procedure This was a 2D Doppler, Color Flow transthoracic echocardiogram. Exam performed portable in patient room. Left Ventricle Normal left ventricle. The estimated ejection fraction is 55-60 %. Right Ventricle Normal right ventricle. Normal systolic function. Atria The left atrium is moderately enlarged. Normal right atrium. Intact atrial septum. Bubble contrast study negative for right to left interatrial shunt. Mitral Valve There is mild mitral annular calcification. Mild (1+) mitral valve insufficiency. Tricuspid Valve Normal tricuspid valve. Mild tricuspid valve insufficiency. Aortic Valve Calcified AV possible bicuspid AV MAGALY 1.4 cm2 A0 Max PG 16.8. Pulmonic Valve The pulmonic valve is not well visualized. Great Vessels Normal aortic root. Pericardium/Pleural No pericardial effusion. Medication Performed a rapid injection of agitated mix of 9 cc saline and 1cc air to assess for atrial septal defect. MMode/2D Measurements & Calculations LVIDd: 4.7 cm IVSd: 0.90 cm LVOT diam: 2.0 cm LVIDs: 3.4 cm LVPWd: 0.87 cm RVDd: 4.6 cm FS: 27.0 % LVOT area: 3.1 cm2 LA dimension: 4.9 cm LAV(MOD-bp): 69.2 ml LA A4 area: 21.9 cm2 LAV(MOD-bp) Indexed: 34.4 ml/m2 LAV(MOD-sp2): 64.4 ml LAV(MOD-sp4): 69.3 ml RA A4 area: 18.5 cm2 Time Measurements MV dec time: 0.33 sec Doppler Measurements & Calculations MV E max servando: 62.4 cm/sec Lat Peak E' Servando: 13.7 cm/sec Med Peak E' Servando: 5.9 cm/sec MV A max servando: 84.1 cm/sec E/E' lat: 4.6 E/E' med: 10.6 MV E/A: 0.74 MV V2 max: 79.6 cm/sec MV P1/2t max servando: 79.6 cm/sec Ao V2 max: 204.4 cm/sec MV max P.5 mmHg MV P1/2t: 107.4 msec Ao max P.8 mmHg MV V2 mean: 37.5 cm/sec MV dec slope: 217.0 cm/sec2 Ao V2 mean: 140.5 cm/sec MV mean P.69 mmHg Ao mean P.3 mmHg MV V2 VTI: 29.7 cm MVA(P1/2t): 2.0 cm2 Ao V2 VTI: 49.4 cm MVA(VTI): 2.3 cm2 MAGALY(I,D): 1.4 cm2 MAGALY(V,D): 1.4 cm2 AI max servando: 235.3 cm/sec LV V1 max: 91.6 cm/sec SV(LVOT): 68.3 ml AI max P.1 mmHg LV V1 max P.4 mmHg AI dec slope: 95.6 cm/sec2 LV V1 mean P.9 mmHg AI P1/2t: 721.0 msec LV V1 mean: 64.8 cm/sec LV V1 VTI: 21.9 cm PA V2 max: 104.2 cm/sec PI end-d servando: 85.4 cm/sec TR max servando: 229.5 cm/sec TR max P.5 mmHg ECHO/Echo Complete Interpretation Summary The estimated ejection fraction is 55-60 %. Calcified AV possible bicuspid AV MAGALY 1.4 cm2/ mild A0 Max PG 16.8 Intact IAS No previous study to compare Ordering Physician: Conner Balbuena Performed By: Abelardo Martinez RCS
[2022-02-18] MEDS: Clopidogrel Bisulfate 300 MG Tablet PO (02:20)
[2022-02-18 02:41] LABS: Troponin-I HS 94 pg/mL (3.0-78.0)
[2022-02-18 04:49] LABS: Absolute Lymphocyte Count 1.31 X10^3/uL (0.83-4.51); Absolute Neutrophil Count 2.8 X10^3/uL (2.0-7.7); Basophil# 0.03 X10^3/uL; Basophil% 0.6 % (0-1); Eosinophil# 0.09 X10^3/uL; Eosinophils% 1.9 % (0-5); Hematocrit 38.5 % (40-54); Hemoglobin 12.9 g/dL (13.0-16.5); Lymphocyte # 1.31 X10^3/ul (0.83-4.51); Lymphocyte % 27.7 % (19-41); Mean Corp Hgb Conc 33.5 g/dL (32-36); Mean Corpuscular Volume 89.5 fL (80-94); Mean Platelet Vol. 11.3 fl (6.2-12.0); Monocyte# 0.48 X10^3/uL; Monocyte% 10.1 % (0-10); NRBC Flagged by Analyzer 0 % (0-5); Neutrophil % 59.3 % (47-70); Platelet Count 190 K/mm3 (150-450); RBC Distribution Width CV 15.3 % (11.6-14.6); RBC Distribution Width SD 50.4 fl (35.1-43.9); White Blood Count 4.7 K/mm3 (4.4-11.0)
[2022-02-18 05:10] LABS: Anion Gap 7 (5-15); BUN 18 mg/dL (7-18); BUN/Creat Ratio 17.6 RATIO (10-20); Calcium,Total 8.7 mg/dL (8.5-10.1); Chloride 106 mmol/L (98-107); Cholesterol 212 mg/dL (200); Creatinine, Serum 1.02 mg/dL (0.70-1.30); EST Glomerular Filtration Rate 75 mL/min (>60); Est Glom Filt Rate - Afr Amer 91 mL/min (>60); Estimated Creatinine Clearance 65.51 ml/min; Glucose 134 mg/dL (74-106); High Density Lipoprotein 34 mg/dL; Potassium 3.5 mmol/L (3.5-5.1); Sodium Level 140 mmol/L (136-145); Triglycerides 189 mg/dL; Troponin-I HS 91 pg/mL (3.0-78.0); Very Low Density Lipoprotein 38 mg/dL (5-40)
[2022-02-18] MEDS: Meclizine HCl 25 MG Tablet PO ×4 (05:40→23:34)
[2022-02-18] MEDS: Aspirin 81 MG TAB.CHEW PO (07:47)
[2022-02-18 08:08] LABS: Hemoglobin A1c 5.7 % (3.8-5.6)
--- NOTE | 2022-02-18 08:41 | CDU_ITS ---
Reason For Study: Right carotid stenosis, dizziness Rt. Velocities/BP Lt. Velocities/BP Prox CCA 77.3/6.9 cm/sec. Prox CCA 68.1/11.5 cm/sec. Mid CCA 60.8/9.1 cm/sec. Mid CCA 79.1/13.3 cm/sec. Dist CCA 50.9/11.3 cm/sec. Dist CCA 75.4/13.3 cm/sec. Bulb, 159.5/4.2 cm/sec. Prox ICA 86.4/13.3 cm/sec. Prox ICA 133.9/24.3 cm/sec. Mid ICA 59.1/10.9 cm/sec. Mid ICA 73.6/15.2 cm/sec. Dist ICA 95.5/17 cm/sec. Dist ICA 90/13.3 cm/sec. Lt. ICA/CCA = 1.15. Rt. ICA/CCA = 2.20. Prox ECA 108.3/4.2 cm/sec. Prox ECA 152.1 cm/sec. Lt. Vert. 51.9/6.5 cm/sec. Rt. Vert. 42.1/8 cm/sec. Right Extracranial There is heterogeneous, irregular atherosclerotic plaque noted in the right common carotid artery. There is heterogeneous, irregular atherosclerotic plaque noted in the right internal carotid artery. The atherosclerotic plaque causes acoustic shadowing. There is heterogeneous, irregular atherosclerotic plaque noted in the right external carotid artery. Antegrade flow is noted in the right vertebral artery. There is heterogeneous, irregular atherosclerotic plaque noted in the right bulb. Left Extracranial There is homogeneous, smooth atherosclerotic plaque noted in the left common carotid artery. There is heterogeneous, irregular atherosclerotic plaque noted in the left internal carotid artery. There is heterogeneous, irregular atherosclerotic plaque noted in the left external carotid artery. Antegrade flow is noted in the left vertebral artery. Procedure Carotid Duplex 55545. This is a Carotid Duplex examination using B-mode, color flow and specral Doppler. Exam performed portable in patient room. VL/Carotid Duplex Ultrasound Interpretation Summary Moderate (50-69%) stenosis right extracranial internal carotid. Mild (<50%) stenosis left extracranial internal carotid. Patent and antegrade vertebrals bilaterally. Limited due to calcific shadowing on the right. Ordering Physician: Orlando Domingo Performed By: Laina Escoto RVT
--- NOTE | 2022-02-18 08:42 | PN.HOSP_ITS ---
Subjective Subjective Dizziness better when he is at rest. Objective Data Objective Data Vital Signs: Vital Signs Temp Pulse Resp BP Pulse Ox O2 Del Method 36.4 C L 41 L 16 127/71 H 99 Room Air 02/18/22 05:30 02/18/22 06:58 02/18/22 05:30 02/18/22 05:30 02/18/22 05:30 02/18/22 07:49 Oxygen Delivery Method Room Air Weight: 79.4 kg Body Mass Index (BMI) 23.7 Intake & Output: Intake and Output for Last 24 Hours 02/16/22 02/17/22 02/18/22 23:59 23:59 23:59 Output Total 750 / 750 Balance -750 / -750 Lab / Micro Data Result Diagrams: 02/18/22 04:41 02/18/22 04:41 Labs: Laboratory Results - last 24 hr 02/17/22 23:00: WBC 4.6, RBC 4.59 L, Hgb 13.4, Hct 41.0, MCV 89.3, MCH 29.2, MCHC 32.7, RDW Std Deviation 49.4 H, RDW Coeff of Hussein 15.0 H, Plt Count 209, MPV 11.4, Immature Gran % (Auto) 0.200, Neut % (Auto) 71.6 H, Lymph % (Auto) 18.8 L, Bee % (Auto) 7.9, Eos % (Auto) 1.3, Baso % (Auto) 0.2, Absolute Neuts (auto) 3.3, Absolute Lymphs (auto) 0.86, Nucleated RBC % 0 02/17/22 23:00: PT 14.2, INR 1.1, APTT 28.0 02/17/22 23:00: Sodium 140, Potassium 3.8, Chloride 104, Carbon Dioxide 28.0, Anion Gap 8, BUN 19 H, Creatinine 1.10, Estim Creat Clear Calc 60.75, Est GFR (MDRD) Af Amer 83, Est GFR (MDRD) Non-Af 69, BUN/Creatinine Ratio 17.3, Glucose 137 H, Calcium 9.3, Troponin I High Sens 95 H 02/18/22 02:08: Troponin I High Sens 94 H 02/18/22 04:41: WBC 4.7, RBC 4.30 L, Hgb 12.9 L, Hct 38.5 L, MCV 89.5, MCH 30.0, MCHC 33.5, RDW Std Deviation 50.4 H, RDW Coeff of Hussein 15.3 H, Plt Count 190, MPV 11.3, Immature Gran % (Auto) 0.400, Neut % (Auto) 59.3, Lymph % (Auto) 27.7, Bee % (Auto) 10.1 H, Eos % (Auto) 1.9, Baso % (Auto) 0.6, Absolute Neuts (auto) 2.8, Absolute Lymphs (auto) 1.31, Nucleated RBC % 0 02/18/22 04:41: Sodium 140, Potassium 3.5, Chloride 106, Carbon Dioxide 27.0, Anion Gap 7, BUN 18, Creatinine 1.02, Estim Creat Clear Calc 65.51, Est GFR (MDRD) Af Amer 91, Est GFR (MDRD) Non-Af 75, BUN/Creatinine Ratio 17.6, Glucose 134 H, Calcium 8.7, Troponin I High Sens 91 H, Triglycerides 189, Cholesterol 212 H, LDL Cholesterol 140 H, VLDL Cholesterol 38, HDL Cholesterol 34 L 02/18/22 04:41: Hemoglobin A1c 5.7 H Radiography Diagnostic Testing: Radiology Impression Chest X-Ray 02/17/22 00:10 IMPRESSION: Normal x-ray examination of the chest. Electronically Signed: Flaco Templeton DO at 0:54 EDT Reading Location ID and State: [address] [place] [address] Tel , Service support , Brain CT 02/18/22 00:00 IMPRESSION: No acute intracranial pathology. No change from 2 days prior N.B. : The above Results were Read Back by Flaco Templeton DO to Uvaldo Whiting MD, and understanding confirmed on 02/18/2022 00:15:03 (ET). Electronically Signed: Flaco Templeton DO at 0:16 EDT Reading Location ID and State: [address] [place] [address] Tel , Service support , ADDENDUM: 02/18/22 0023 IMPRESSION: No acute intracranial pathology. No change from 2 days prior N.B. : The above Results were Read Back by Flaco Templeton DO to Uvaldo Whiting MD, and understanding confirmed on 02/18/2022 00:15:03 (ET). Electronically Signed: Flaco Templeton DO at 0:16 EDT Reading Location ID and State: [facility] / [place] Tel , Service support , Head/Neck CTA 02/18/22 00:00 IMPRESSION: No evidence of occlusion, dissection or aneurysm. Severe atherosclerotic disease in the right carotid bulb with a high-grade stenosis. Moderate atherosclerotic disease in the left carotid bulb. N.B. : The above Results were Read Back by Flaco Templeton DO to Uvaldo Whiting MD, and understanding confirmed on 02/18/2022 00:37:50 (ET). Electronically Signed: Flaco Templeton DO at 0:39 EDT Reading Location ID and State: [address] [place] [address] Tel , Service support , ADDENDUM: 02/18/22 0045 IMPRESSION: No evidence of occlusion, dissection or aneurysm. Severe atherosclerotic disease in the right carotid bulb with a high-grade stenosis. Moderate atherosclerotic disease in the left carotid bulb. N.B. : The above Results were Read Back by Flaco Templeton DO to Uvaldo Whiting MD, and understanding confirmed on 02/18/2022 00:37:50 (ET). Electronically Signed: Flaco Templeton DO at 0:39 EDT , Physical Exam Const alert and no apparent distress Resp normal respiratory effort, no retractions and no use of accessory muscles Cardio regular rate, regular rhythm, S1 normal heart sound and S2 normal heart sound GI normal to inspection, nondistended, normoactive bowel sounds Extremity normal to inspection Neuro oriented x3 and CN's II-XII intact bilaterally Neuro Narrative: Left lateral nystagmus that patient had to look away be because of his nystagmus. But it did not appear to fatigue. Sensorium / Orientation: awake and alert Motor Exam: strength 5/5 throughout Psych affect normal Assessment & Plan Assessment/Plan (1) Vertigo: PLAN: Intractable Vertigo Order MRI Schedule meclizine 3 times daily As needed Valium ordered. Physical therapy consult Head CT with no acute pathology. Head CT was visualized and independent interpreted and I agree with radiologist interpretation. CT neck with severe atherosclerotic disease in the right carotid bulb and high- grade stenosis. Moderate atherosclerotic disease in the left carotid bulb. Lipid profile and A1c ordered. Daily aspirin. Patient reports allergy to statin. MRI of head ordered. Echocardiogram ordered. Per teleneurology's recommendation Plavix 300 mg p.o. x1. Per teleneurology recommendation if MRI is positive order Plavix 75 mg daily. Permissive hypertension. Control blood pressure with labetalol for systolic blood pressure of more than 220 or diastolic blood pressure of more than 120. MRI of the brain has been ordered but patient has a cochlear implant, mostly removed but there apparently still is some element of it still in place. Patient has had an MRI before but he does not have his information available. We will try to get the information this coming Sunday and get the MRI. (2) Atherosclerosis of both carotid arteries: PLAN: high-grade stenosis on right cannot rule this out as the cause of vertigo check US PLAN: Plan Elevated troponin High sensitivity troponin of 95. Trend. Denies chest pain. Likely type II [place] from demand ischemia. DVT prophylaxis: SCDs ordered. Charges/Coding Visit Charges OBSV E&M: 89875 Subsequent observation care L2
--- NOTE | 2022-02-18 13:52 | CASEMGMT ---
Social Work Pt had indicated to admitting RN that he has LW/POA, not able to bring in documents. Pt had indicated Daughter Jo Cabrera is listed as medical POA. PHOEBE Cotton
[2022-02-19] VITALS (12 sets, daily range): BP systolic 115–139; BP diastolic 51–78; PULSE 46–72; RESP 16–18; TEMP 36.4–37.2; O2SAT 96–99; BMI 23.7
[2022-02-19] MEDS: Meclizine HCl 25 MG Tablet PO ×2 (05:29→11:58)
--- NOTE | 2022-02-19 07:38 | EKG12_ITS ---
Test Reason : Blood Pressure : / mmHG Vent. Rate : 054 BPM Atrial Rate : 054 BPM P-R Int : 198 ms QRS Dur : 092 ms QT Int : 456 ms P-R-T Axes : 073 035 066 degrees QTc Int : 432 ms Sinus bradycardia with marked sinus arrhythmia Nonspecific ST abnormality Abnormal ECG When compared with ECG of 17-FEB-2022 22:53, MANUAL COMPARISON REQUIRED, DATA IS UNCONFIRMED Confirmed by MORIAH LLAMAS, KENNEDY ([id number]), book editor RADHA CHUNG ([id number]) on 02/20/2022 1:52:36 PM Referred By: Confirmed By:KENNEDY MAJOR MD
[2022-02-19] MEDS: Aspirin 81 MG TAB.CHEW PO (08:44)
[2022-02-19] MEDS: Senna/Docusate Sodium 1 Tablet 2 TABLET PO (09:04)
--- NOTE | 2022-02-19 09:27 | PN.HOSP_ITS ---
Subjective Subjective Dizziness is resolved Objective Data Objective Data Vital Signs: Vital Signs Temp Pulse Resp BP Pulse Ox O2 Del Method 36.5 C L 72 16 123/62 H 96 Room Air 02/19/22 08:50 02/19/22 08:50 02/19/22 08:50 02/19/22 08:50 02/19/22 09:04 02/19/22 09:04 Oxygen Delivery Method Room Air Weight: 79.4 kg Body Mass Index (BMI) 23.7 Intake & Output: Intake and Output for Last 24 Hours 02/17/22 02/18/22 02/19/22 23:59 23:59 23:59 Intake Total 920 / 920 Output Total 2775 / 2775 250 / 250 Balance -1855 / -1855 -250 / -250 Lab / Micro Data Result Diagrams: 02/18/22 04:41 02/18/22 04:41 Radiography Diagnostic Testing: Radiology Impression Echocardiogram 02/18/22 01:41 Interpretation Summary The estimated ejection fraction is 55-60 %. Calcified AV possible bicuspid AV MAGALY 1.4 cm2/ mild A0 Max PG 16.8 Intact IAS No previous study to compare Ordering Physician: Conner Balbuena Performed By: Abelardo Martinez RCS Physical Exam Const alert and no apparent distress HEENT head/scalp atraumatic and moist oral mucous membranes Eyes Eyes Narrative: Left lateral nystagmus that did fatigue after about 5 beats. Resp normal respiratory effort, no retractions, no use of accessory muscles and clear to auscultation bilaterally Cardio regular rate, regular rhythm, S1 normal heart sound and S2 normal heart sound GI normal to inspection, nondistended, normoactive bowel sounds, soft to palpation, non-tender and non-distended Extremity normal to inspection Assessment & Plan Assessment/Plan (1) Vertigo: PLAN: Resolved As needed Valium ordered. Physical therapy consult Head CT with no acute pathology. Head CT was visualized and independent interpreted and I agree with radiologist interpretation. CT neck with severe atherosclerotic disease in the right carotid bulb and high- grade stenosis. Moderate atherosclerotic disease in the left carotid bulb. Lipid profile and A1c ordered. Daily aspirin. Patient reports allergy to statin. MRI of head ordered. Echocardiogram ordered. Per teleneurology's recommendation Plavix 300 mg p.o. x1. Per teleneurology recommendation if MRI is positive order Plavix 75 mg daily. Permissive hypertension. Control blood pressure with labetalol for systolic blood pressure of more than 220 or diastolic blood pressure of more than 120. MRI of the brain has been ordered but patient has a cochlear implant, mostly removed but there apparently still is some element of it still in place. Patient has had an MRI before but he does not have his information available. We will try to get the information this coming Sunday and get the MRI. (2) Atherosclerosis of both carotid arteries: PLAN: high-grade stenosis on right cannot rule this out as the cause of vertigo check US PLAN: Plan Elevated troponin High sensitivity troponin of 95. Trend. Denies chest pain. Likely type II ID from demand ischemia. DVT prophylaxis: SCDs ordered. Charges/Coding Visit Charges Inpatient E&M: 04505 Subs Hosp L2
[2022-02-19] MEDS: Glycerin/Hypromellose/PEG400 15 ml Bottle 2 DRP EACH EYE (12:34)
[2022-02-19] MEDS: lamoTRIgine 25 MG Tablet PO (14:37)
[2022-02-20] VITALS (13 sets, daily range): BP systolic 122–135; BP diastolic 64–74; PULSE 52–80; RESP 14–17; TEMP 37.1–37.3; O2SAT 96–100; BMI 23.7
--- NOTE | 2022-02-20 07:37 | PN.HOSP_ITS ---
Subjective Subjective no further dizziness Objective Data Objective Data Vital Signs: Vital Signs Temp Pulse Resp BP Pulse Ox O2 Del Method 37.1 C 70 17 135/64 H 98 Room Air 02/20/22 05:00 02/20/22 05:00 02/20/22 05:00 02/20/22 05:00 02/20/22 05:00 02/20/22 05:00 Oxygen Delivery Method Room Air Weight: 79.4 kg Body Mass Index (BMI) 23.7 Intake & Output: Intake and Output for Last 24 Hours 02/18/22 02/19/22 02/20/22 23:59 23:59 23:59 Intake Total 920 / 920 900 / 900 Output Total 2775 / 2775 1055 / 1055 0 / 0 Balance -1855 / -1855 -155 / -155 0 / 0 Lab / Micro Data Result Diagrams: 02/18/22 04:41 02/18/22 04:41 Physical Exam Const alert and no apparent distress Eyes Eyes Narrative: 2 beat left lateral nystagmus Resp normal respiratory effort, no retractions and no use of accessory muscles Cardio regular rate, regular rhythm, S1 normal heart sound and S2 normal heart sound GI normal to inspection, nondistended, normoactive bowel sounds and soft to palpation Extremity normal to inspection Assessment & Plan Assessment/Plan (1) Vertigo: PLAN: Resolved As needed Valium ordered. Physical therapy consult Data: * Head CT with no acute pathology. Head CT was visualized and independent interpreted and I agree with radiologist interpretation. * CT neck with severe atherosclerotic disease in the right carotid bulb and high-grade stenosis. Moderate atherosclerotic disease in the left carotid bu lb. * Lipid profile: Chold 212, LDL 140 * A1c 5.7 * Echo shows an EF of 55-60% Daily aspirin. Patient reports allergy to statin. Per teleneurology's recommendation Plavix 300 mg p.o. x1. Per teleneurology recommendation if MRI is positive order Plavix 75 mg daily. MRI of the brain has been ordered but patient has a cochlear implant, mostly removed but there apparently still is some element of it still in place. Patient has had an MRI before but he does not have his information available. We will try to get the information this coming Sunday and get the MRI. (2) Atherosclerosis of both carotid arteries: PLAN: high-grade stenosis on right cannot rule this out as the cause of vertigo check US Likely vascular surgery outpt follow up. (3) Elevated troponin: PLAN: High sensitivity troponin of 95. Trend. Denies chest pain. Likely type II NH from demand ischemia. Though, no prior labs available, so cannot rule out chronic elevation. Echo showed no wall motion abnormalities. PLAN: Plan DVT prophylaxis: SCDs ordered. Charges/Coding Visit Charges Inpatient E&M: 64834 Subs Hosp L2
[2022-02-20] MEDS: Aspirin 81 MG TAB.CHEW PO (09:37)
[2022-02-20] MEDS: lamoTRIgine 25 MG Tablet PO (09:37)
[2022-02-20] MEDS: 0.9% Saline Lock 10 ML Syringe IV (09:38)
--- NOTE | 2022-02-20 11:45 | CASEMGMT ---
RN BENI Face to Face with patient for initial transition planning/care coordination assessment. RN CM introduced self and role at [facility]. Patient sitting in chair, alert and oriented, family at bedside. Patient willing to participate in assessment and is able to answer all questions appropriately. Care providers, pharmacy, and demographics verified. Patient wishes to discharge home, denies need for home health at this time. Patient states he has no further needs or concerns at this time. CM to follow for discharge planning needs that may arise. PCP: Prashant in [place], [place] P:[phone] Specialists: patient accounting representative in [place] Preferred Pharmacy: [facility] retail at discharge Insurance: [facility], Physician [place] Prescription Benefit: yes Living Will/HPOA: yes, daughter Jo Cabrera LNOK: daughter, niece and nephew Living Arrangements: Patient visiting from [place], staying with niece and nephew in a 2 story home with bed and bath on first floor. Patient states he is independent at home. Transportation: self, family DME/HHC: Patient states he has cane at home. No previous HHC or SNF. Will monitor for FWW at discharge, no preferences for DME agency. Disposition Plan: Patient to discharge to niece's house with follow-up plans in place. Laina PRESLEY, RN, CM
--- NOTE | 2022-02-20 11:51 | CHAPLAIN ---
Type of Pastoral Visit _x__ Initial Visit ___ Follow-up Visit ___ On-call Visit ___ General Patient Visit ___ Spiritual Assessment ___ Family Conference ___ Bereavement ___ Rapid Response ___ Code Blue ___ Other (describe below) Pastoral Care Referral From _x__ Patient ___ Family ___ Nurse ___ Physician ___ Switchboard Operator Helper ___ Hematology Technician ___ Other (describe below) Sacrament/Intervention _x__ Active listening ___ Anointing ___ Religion ___ Bereavement ___ Communion ___ Amira exploration ___ _x__ Life review _x__ Prayer ___ Reconciliation ___ Sacrament of Sick _x__ Supportive presence ___ Wedding ___ Other (describe below) Pastoral Comments patient lives out of state and is in area for a reunion; pt speaks of his disappointment of missing reunion and his purpose of traveling; son is with pt; pt does report feeling better and hopes to be discharged today or tomorrow; pt states that he has many prayers being said for him in home mormonism; 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
--- NOTE | 2022-02-20 14:34 | MRI_ITS ---
HISTORY: cva. TECHNIQUE: Multiplanar and multisequence MR images of the brain were obtained without contrast. 294 images. COMPARISON: CT 02/18/2022. FINDINGS: BRAIN PARENCHYMA: Mild periventricular white matter changes. No abnormal focus of restricted diffusion. No acute intracranial hemorrhage identified. CSF SPACES: Mild generalized volume loss. Jorge cisterna magna again noted. No significant midline shift or other mass effect.No extra-axial fluid collection. VASCULAR SYSTEM: Major intracranial flow voids are maintained. PARANASAL SINUSES AND MASTOID AIR CELLS: No significant air fluid levels. ORBITS: Bilateral lens resections. MRI/Brain without Contrast IMPRESSION: No evidence for acute infarct. Mild chronic involutional and white matter changes. Electronically Signed: Yasmin Grier MD at 16:05 EDT ,
--- NOTE | 2022-02-20 16:23 | DCINST_ITS ---
Discharge Instructions Diet Discharge Diet: Low fat / Low cholesterol Dressing / Incision Call your doctor if you observe: - (vertigo. unilateral weakness) Follow Up Care Test Results: Test results from this visit will be discussed in further detail at your follow- up appointment, if applicable. Discharge Plan Admission Admit Date/Time: 02/18/22 14:42 Primary Reason for Your Visit: vertigo Attending Provider: Orlando Domingo Primary Care Provider: Care Physician,No Primary Consulting Providers: Conner Balbuena Discharge Orders/Prescriptions Prescriptions: Continued aspirin 81 mg Capsule 81 mg PO DAILY meclizine 25 MG tablet 25 mg PO Q8H PRN PRN (Reason: Dizziness) Qty: 20 0RF isosorbide mononitrate 30 mg tablet extended release 24 hr 30 mg PO DAILY lamotrigine 25 mg tablet 25 mg PO DAILY Referrals / Follow Up: Orlando Schreiber MD [Med Staff - Active Staff] - Within 2 Weeks Care Physician,No Primary [Primary Care Provider] - Disposition Disposition (needs filled in before D/C Order can be placed): Home, Self Care
--- NOTE | 2022-02-20 16:26 | DS.PCM_ITS ---
Providers Date of Admission: 02/18/22 Primary Care Physician: No Primary Care Phys Reason For Visit: VERTIGO Diagnosis Discharge Diagnosis (1) Vertigo: Status: Acute Code(s): R42 - Dizziness and giddiness Plan: Resolved 2/2 to BPPV. Data: * Head CT with no acute pathology. Head CT was visualized and independent interpreted and I agree with radiologist interpretation. * CT neck with severe atherosclerotic disease in the right carotid bulb and high-grade stenosis. Moderate atherosclerotic disease in the left carotid bulb. * Lipid profile: Chold 212, LDL 140 * A1c 5.7 * Echo shows an EF of 55-60% * MRI of the brain negative for acute CVA. Daily aspirin. Patient reports allergy to statin. (2) Atherosclerosis of both carotid arteries: Status: Acute Code(s): I65.23 - Occlusion and stenosis of bilateral carotid arteries Plan: high-grade stenosis on right US showed 50-69% stenosis on ANDRES and less than 50% stenosis on LICA. DW Dr. Schreiber. Patient can follow up as outpt. Continue ASA. Allergy to statin. (3) Elevated troponin: Status: Acute Code(s): R77.8 - Other specified abnormalities of plasma proteins Plan: High sensitivity troponin of 95. Trend. Denies chest pain. Likely type II MD from demand ischemia. Though, no prior labs available, so cannot rule out chronic elevation. Echo showed no wall motion abnormalities. Medications at Discharge Home Medications aspirin 81 mg capsule 81 mg PO DAILY 02/16/22 meclizine 25 mg tablet 25 mg PO Q8H PRN PRN Dizziness #20 tabs 02/16/22 isosorbide mononitrate 30 mg tablet,extended release 24 hr 30 mg PO DAILY 02/18/22 lamotrigine 25 mg tablet 25 mg PO DAILY 02/18/22 Hospital Course Operations None Procedures None Summary of Care Provided Minutes Spent on Discharge: 35 Weight / BMI Weight Weight: 79.4 kg Body Mass Index (BMI) 23.7 ABG / Lab / Microbiology Data Result Diagrams: 02/18/22 04:41 02/18/22 04:41 Radiography Diagnostic Testing: Radiology Impression Carotid Duplex 02/18/22 08:41 Interpretation Summary Moderate (50-69%) stenosis right extracranial internal carotid. Mild (<50%) stenosis left extracranial internal carotid. Patent and antegrade vertebrals bilaterally. Limited due to calcific shadowing on the right. Ordering Physician: Orlando Domingo Performed By: Laina Escoto, [facility] Brain MRI 02/20/22 14:34 IMPRESSION: No evidence for acute infarct. Mild chronic involutional and white matter changes. Electronically Signed: Yasmin Grier MD at 16:05 EDT Reading Location ID and State: [address] [place] [address] Tel , Service support , D/C Instructions Discharge Diet: Low fat / Low cholesterol Call your doctor if you observe: - (vertigo. unilateral weakness) Meaningful Use Info Meaningful Use Diagnoses (Choose all that apply): None applicable Discharge Plan Admission Admit Date/Time: 02/18/22 14:42 Primary Reason for Your Visit: vertigo Attending Provider: Orlando Domingo Primary Care Provider: Care Physician,No Primary Consulting Providers: Conner Balbuena Discharge Orders/Prescriptions Prescriptions: Continued aspirin 81 mg Capsule 81 mg PO DAILY meclizine 25 MG tablet 25 mg PO Q8H PRN PRN (Reason: Dizziness) Qty: 20 0RF isosorbide mononitrate 30 mg tablet extended release 24 hr 30 mg PO DAILY lamotrigine 25 mg tablet 25 mg PO DAILY Referrals / Follow Up: Orlando Schreiber MD [Med Staff - Active Staff] - Within 2 Weeks Care Physician,No Primary [Primary Care Provider] - Disposition Disposition (needs filled in before D/C Order can be placed): Home, Self Care Charges/Coding Visit Charges Inpatient E&M: 19822 Disch Hosp
== END 2022-02-20 18:04 | disposition home or self-care (01) | DRG 149 ==
LOC: ED 02-18 00:45 → PCU 02-18 01:05
PROVIDERS: Admitting Provider Hospitalist; Emergency Provider Emergency Medicine
DX: H81.10 Benign paroxysmal vertigo, unspecified ear (principal); I21.A1 Myocardial infarction type 2; I65.23 Occlusion and stenosis of bilateral carotid arteries; I25.10 Atherosclerotic heart disease of native coronary artery without angina pectoris; I10 Essential (primary) hypertension; H81.09 Meniere's disease, unspecified ear; R77.8 Other specified abnormalities of plasma proteins; Z95.1 Presence of aortocoronary bypass graft; Z95.5 Presence of coronary angioplasty implant and graft; Z79.82 Long term (current) use of aspirin; Z79.899 Other long term (current) drug therapy
CPT/HCPCS: 36415; 70450; 70496; 70498; 70551; 71045; 80048; 80053; 80061; 83036; 84484; 85025; 85610; 85730; 92523; 92610; 93005; 93306; 93880; 94762; 96374; 97110; 97116; 97162; 97165; 97530; 97535; 99285; Q9967; A4216; J2405